=== PATIENT | male | born 1970 | race Caucasian/White ===

== ENCOUNTER 2024-10-31 13:42 | Emergency (ER) | payer OTHER ==
[~2024-10-31] VITALS: Ht 172.7 cm; Wt 103.0 kg
[2024-10-31 15:10] VITALS: BP 150/88
== END 2024-10-31 15:10 | disposition home or self-care (01) ==
LOC: ED 13:42
DX: M79.641 Pain in right hand (principal); W22.8XXA Striking against or struck by other objects, initial encounter
CPT/HCPCS: 29125; 73130; 99283

== ENCOUNTER 2025-03-04 21:24 | Emergency (ER) | payer OTHER ==
[~2025-03-04] VITALS: Ht 172.7 cm; Wt 101.3 kg
[2025-03-04] MEDS ORDERED: GABAPENTIN100 MG PO (22:50)
[2025-03-04] MEDS ORDERED: LOSARTAN POTASS50 MG PO (22:50)
[2025-03-04] MEDS ORDERED: FENOFIBRATE67 MG PO (22:50)
[2025-03-04] MEDS ORDERED: CYCLOBENZAPRINE10 MG PO (23:39)
[2025-03-04] MEDS ORDERED: methylPREDNISolone 4 MG HOME.PACK PO ONE (23:45)
[2025-03-04] MEDS ORDERED: KETOROLAC TROMETHAMINE 60 MG/2 ML VIAL IM ONE (23:45)
[2025-03-04] MEDS ORDERED: CYCLOBENZAPRINE HCL 10 MG HOME.PACK PO ONE (23:45)
[2025-03-05 00:14] VITALS: BP 146/100
== END 2025-03-05 01:28 | disposition home or self-care (01) ==
LOC: ED 21:24
DX: S43.401A Unspecified sprain of right shoulder joint, initial encounter (principal); I10 Essential (primary) hypertension; V89.2XXA Person injured in unspecified motor-vehicle accident, traffic, initial encounter; Z79.899 Other long term (current) drug therapy
CPT/HCPCS: 73030; 99284; J1885